=== PATIENT | female | born 2000 | race Two or more races ===

== ENCOUNTER 2025-02-06 20:00 | Emergency (ER) | payer BC ==
[~2025-02-06] VITALS: Ht 154.9 cm; Wt 74.8 kg
[2025-02-06 20:06] VITALS: BP 141/77; PULSE 92; RESP 18; TEMP 98; O2SAT 98
[2025-02-06] MEDS ORDERED: NS 1000ML 1,000 ML ONE (20:26)
[2025-02-06] MEDS ORDERED: REGLAN ONE (20:26)
[2025-02-06 20:29] LABS: BASOPHIL # 0.0 10^3/uL (0.0-0.1); BASOPHIL % 0.3 % (0.1-1.2); EOSINOPHIL # 0.0 10^3/uL (0.0-0.2); EOSINOPHIL % 0.0 % (0.0-5.0); HEMATOCRIT(ML) 41.3 % (36.0-46.0); IG % 0.10 % (0.00-0.50); LYMPHOCYTES # 2.03 10^3/uL1 (1.0-4.8); LYMPHOCYTES % 18.0 % (24.0-44.0); MEAN CORP HGB 30.1 pg (26-34); MEAN CORP HGB CONCENTRATION 34.4 g/dL (33-36.5); MEAN CORP VOLUME 87.5 fL (78-100); MONOCYTES # 0.8 10^3/uL (0.3-0.8); MONOCYTES % 6.8 % (5.0-12.0); NEUTROPHIL # 8.5 10^3/uL (1.8-7.7); NEUTROPHILS % 74.8 % (41.0-85.0); RED BLOOD CELL 4.72 10^6/uL (4.00-5.20); RED CELL DISTRIBUTION WIDTH 11.4 % (11.5-14.5); WHITE BLOOD CELL 11.3 10^3/uL (4.5-11.0)
[2025-02-06 20:32] LABS: APPEARANCE,URINE CLOUDY; LEUKOCYTE ESTERASE ,URINE TRACE (NEGATIVE); NITRATE,URINE NEGATIVE (NEGATIVE); UA COLOR YELLOW
[2025-02-06] MEDS: REGLAN IV STA (20:35)
[2025-02-06] MEDS: NS 1000ML 1,000 ML STA (20:35)
[2025-02-06 20:43] LABS: INR 1.0; PROTHROMBIN PROTIME 10.3 SEC (9.3-11.6)
[2025-02-06 21:09] LABS: ALANINE AMINOTRANSFERASE(ML) 18.0 U/L (12-78); ALBUMIN(ML) 4.1 g/dL (3.4-5.0); CREATININE SERUM 0.97 mg/dL (0.59-1.40); EST GFR, NON-AA 71.8 (>/=60)
[2025-02-06 21:39] VITALS: BP 140/48; PULSE 70; RESP 18; O2SAT 98
[2025-02-06] MEDS ORDERED: ZOFRAN ONE (21:45)
[2025-02-06] MEDS: ZOFRAN IV STA (21:50)
[2025-02-06] MEDS ORDERED: OFIRMEV 100 ML IV ONE (22:21)
[2025-02-06] MEDS: OFIRMEV 100 ML IV STA (22:29)
[2025-02-06 23:17] VITALS: BP 114/57; PULSE 77; RESP 18; O2SAT 98
== END 2025-02-06 23:16 | disposition home or self-care (01) ==
LOC: ER 20:00
DX: O21.0 Mild hyperemesis gravidarum (principal); O20.8 Other hemorrhage in early pregnancy; O99.331 Smoking (tobacco) complicating pregnancy, first trimester; F17.290 Nicotine dependence, other tobacco product, uncomplicated; Z3A.11 11 weeks gestation of pregnancy; Z90.49 Acquired absence of other specified parts of digestive tract
CPT/HCPCS: 99284; 96365; 76801; 96361; 96375; 87086; 76817; 80053; 85025; 36415; 81001; 85610; 85730; 86900; 87077; 84702; 87186; J7030; J0131; J2405; J2765; 82150; 83690

== ENCOUNTER 2025-02-21 15:29 | Emergency (ER) | payer BC ==
[~2025-02-21] VITALS: Ht 154.9 cm; Wt 72.6 kg
[2025-02-21 15:29] VITALS: BP 135/77; PULSE 85; RESP 18; TEMP 98.5; O2SAT 97
[2025-02-21] MEDS ORDERED: LACTATED RINGERS 1,000 ML ONE (16:11)
[2025-02-21] MEDS ORDERED: REGLAN ONE (16:11)
[2025-02-21] MEDS: REGLAN IV STA (16:14)
[2025-02-21] MEDS: LACTATED RINGERS 1,000 ML IV SCH (16:14)
[2025-02-21 17:03] LABS: LEUKOCYTE ESTERASE ,URINE 1+ (NEGATIVE); NITRATE,URINE NEGATIVE (NEGATIVE)
[2025-02-21 17:09] LABS: APPEARANCE,URINE HAZY; UA COLOR YELLOW
[2025-02-21 17:20] VITALS: BP 122/78; PULSE 65; RESP 18; O2SAT 99
[2025-02-21] MEDS ORDERED: METO10TA83 PO (17:28)
== END 2025-02-21 17:37 | disposition home or self-care (01) ==
LOC: ER 15:29
DX: O21.0 Mild hyperemesis gravidarum (principal); E66.9 Obesity, unspecified; Z79.899 Other long term (current) drug therapy; Z90.49 Acquired absence of other specified parts of digestive tract; Z3A.13 13 weeks gestation of pregnancy
CPT/HCPCS: 99284; 96374; 96361; 87086; 81001; 87077; 87186; J7120; J2765